=== PATIENT | female | born 1995 | race Caucasian/White ===

== ENCOUNTER 2017-04-18 12:54 | Emergency (ER) | payer OTHER ==
[~2017-04-18 12:54] MED LIST: FLONASE16 G1 BOTH NARES; POTASSIUM CHLO20 MEQ PO; VISTARIL50 MG PO; XANAX0.25 MG PO; ZOFRAN ODT4 MG PO
== END 2017-04-18 13:45 | disposition left against medical advice (07) ==
LOC: EME 12:54
DX: R06.89 Other abnormalities of breathing (principal); Z53.21 Procedure and treatment not carried out due to patient leaving prior to being seen by health care provider